=== PATIENT | male | born 1975 | race African-American/Black ===

== ENCOUNTER 2021-01-28 08:58 | Emergency (ER) | payer MEDICAID ==
[~2021-01-28] VITALS: Ht 182.9 cm; Wt 82.0 kg
[2021-01-28 09:04] VITALS: BP 146/90
[2021-01-28] MEDS ORDERED: LIDOCAINE 5% PATCH TOP SCH (10:00)
[2021-01-28] MEDS ORDERED: ACETAMINOPHEN 325MG TABLET PO ONE (10:00)
[2021-01-28] MEDS ORDERED: METHOCARBAMOL 500MG TABLET PO ONE (10:00)
[2021-01-28] MEDS ORDERED: IBUPROFEN 400MG TABLET PO ONE (10:00)
[2021-01-28] MEDS ORDERED: TOPUD PO (11:34)
[2021-01-28] MEDS ORDERED: LIDO1ADH23 TP (11:35)
[2021-01-28] MEDS ORDERED: METH-653 MT (11:35)
[2021-01-28] MEDS ORDERED: IBUP-2028 MT (11:35)
== END 2021-01-28 12:06 | disposition home or self-care (01) ==
LOC: ER 09:09
DX: M54.50 Low back pain, unspecified (principal)
CPT/HCPCS: 99284